=== PATIENT | male | born 1995 | race Caucasian/White ===

== ENCOUNTER 2019-01-04 13:40 | Emergency (ER) | payer SELFPAY ==
[~2019-01-04] VITALS: Ht 180.3 cm; Wt 63.6 kg
[~2019-01-04 13:40] MED LIST: ALBU17AE16 IH; FLUT44HFA IH
[2019-01-04 15:56] VITALS: BP 106/76
== END 2019-01-04 16:16 | disposition home or self-care (01) ==
LOC: EMS 13:41
DX: R07.9 Chest pain, unspecified (principal)
CPT/HCPCS: 93005